=== PATIENT | female | born 1990 | race Caucasian/White ===

== ENCOUNTER 2020-09-27 13:08 | Emergency (ER) | payer MEDICAID ==
[~2020-09-27] VITALS: Ht 172.7 cm; Wt 72.7 kg
[2020-09-27 13:18] VITALS: BP 121/69
[2020-09-27] MEDS ORDERED: acetaminophen 325mg tablet PO ONE (17:25)
[2020-09-27] MEDS ORDERED: ondansetron 4mg rapidly disintigrating tab PO ONE (17:25)
[2020-09-27] MEDS ORDERED: diazepam 5mg tablet PO ONE (17:25)
[2020-09-27 17:55] LABS: URINE HCG NEGATIVE (NEG)
== END 2020-09-27 19:33 | disposition home or self-care (01) ==
LOC: ER 13:08
DX: S01.01XA Laceration without foreign body of scalp, initial encounter (principal); S40.021A Contusion of right upper arm, initial encounter; S30.0XXA Contusion of lower back and pelvis, initial encounter; F41.9 Anxiety disorder, unspecified; Z88.1 Allergy status to other antibiotic agents; Z87.448 Personal history of other diseases of urinary system; W19.XXXA Unspecified fall, initial encounter; Y93.89 Activity, other specified; Y92.89 Other specified places as the place of occurrence of the external cause; Y99.8 Other external cause status
CPT/HCPCS: 70450; 72170; 72220; 73110; 73130; 81025; 99285

== ENCOUNTER 2020-11-21 08:38 | Emergency (ER) | payer MEDICAID ==
[~2020-11-21] VITALS: Ht 170.2 cm; Wt 70.5 kg
[2020-11-21 08:53] VITALS: BP 119/75
== END 2020-11-21 11:44 | disposition home or self-care (01) ==
LOC: ER 08:40
DX: M79.671 Pain in right foot (principal); Z87.440 Personal history of urinary (tract) infections; Z72.89 Other problems related to lifestyle; Z88.1 Allergy status to other antibiotic agents
CPT/HCPCS: 93971; 99284

== ENCOUNTER 2020-11-27 12:50 | Emergency (ER) | payer MEDICAID ==
[~2020-11-27] VITALS: Ht 170.2 cm; Wt 70.8 kg
[2020-11-27] MEDS ORDERED: normal saline 1000ML IV soln IV ONE (16:15)
[2020-11-27 17:12] LABS: BASOPHILS # (AUTO) 0.1 X10'3 (0-0.2); BASOPHILS % (AUTO) 0.4 % (0-1); EOSINOPHILS # (AUTO) 0.2 X10'3 (0-0.9); EOSINOPHILS % (AUTO) 1.5 % (0-6); HEMATOCRIT 33.7 % (35.0-45.0); HEMOGLOBIN 11.3 g/dl (12.0-16.0); LYMPHOCYTES % (AUTO) 16.5 % (21-51); MEAN CORPUSCULAR HEMOGLOBIN 30.2 PG (27.0-31.0); MEAN CORPUSCULAR HGB CONC 33.5 g/dL (33.0-36.5); MEAN PLATELET VOLUME 8.8 FL (7.4-10.4); MONOCYTES # (AUTO) 0.6 X10'3 (0-0.9); MONOCYTES % (AUTO) 4.6 % (2-12); NEUTROPHILS # (AUTO) 9.1 X10'3 (1.8-7.7); PLATELET COUNT 296 X10'3 (140-440); RED BLOOD COUNT 3.75 X10'6 (4.20-5.60); RED CELL DISTRIBUTION WIDTH 12.9 % (11.5-14.5); WHITE BLOOD COUNT 11.9 X10'3 (4.5-11.0)
[2020-11-27 17:32] LABS: CLARITY,URINE SLIGHTLY CLOUDY (Clear); COLOR,URINE STRAW (Yellow); GLUCOSE, URINE NEGATIVE (Neg); KETONES,URINE NEGATIVE (Neg); LEUKOCYTE ESTERASE ,URINE NEGATIVE (Neg); NITRITES, URINE NEGATIVE (Neg); OCCULT BLOOD,URINE NEGATIVE (Neg); PROTEIN,URINE NEGATIVE (Neg); UROBILINOGEN,URINE 0.2 E.U/dL (0.2-1.0)
[2020-11-27 17:35] LABS: UA COLLECTION TYPE CLN CATCH MIDSTREAM
[2020-11-27 17:35] LABS: ALANINE AMINOTRANSFERASE 52 U/L (12-78); ALKALINE PHOSPHATASE 79 IU/L (46-116); ANION GAP 9 (8-16); ASPARTATE AMINO TRANSFERASE 24 U/L (10-37); BILIRUBIN,TOTAL 0.2 MG/DL (0.1-1.0); BLOOD UREA NITROGEN 12 MG/DL (7-18); CALCIUM 9.2 MG/DL (8.5-10.1); CHLORIDE 102 MMOL/L (99-107); CREATININE 0.63 MG/DL (0.40-0.90); GLUCOSE 96 MG/DL (70-104); MAGNESIUM 2.2 MG/DL (1.5-2.4); POTASSIUM 4.1 MMOL/L (3.5-5.1); SODIUM 138 MMOL/L (135-145); TOTAL CARBON DIOXIDE 27.5 MMOL/L (24-32); TOTAL PROTEIN 7.9 G/DL (6.4-8.2); eGFR > 90 ML/MIN
[2020-11-27 17:36] LABS: URINE HCG NEGATIVE (NEG)
[2020-11-27 17:37] LABS: MUCUS STRANDS NONE SEEN /LPF (Neg); SQUAMOUS EPITHELIAL CELL,UR FEW /LPF (FEW)
[2020-11-27 17:38] LABS: BACTERIA,URINE FEW /HPF (Neg); RBC,URINE 0-2 /HPF (0-2); WBC,URINE NONE SEEN /HPF (0-4)
[2020-11-27 17:39] LABS: HCG SERUM QL NEGATIVE
[2020-11-27] MEDS ORDERED: iohexol 300mg/ml 100ml inj. ONE (18:05)
[2020-11-27 18:35] VITALS: BP 112/60
== END 2020-11-27 18:41 | disposition home or self-care (01) ==
LOC: ER 12:51
DX: L76.82 Other postprocedural complications of skin and subcutaneous tissue (principal); Z87.440 Personal history of urinary (tract) infections; Z88.1 Allergy status to other antibiotic agents
CPT/HCPCS: 36415; 80053; 81001; 81025; 83605; 83735; 84145; 84703; 85025; 87040; 99283; Q9967

== ENCOUNTER 2023-08-07 13:31 | Emergency (ER) | payer MEDICAID ==
[~2023-08-07] VITALS: Ht 170.2 cm; Wt 75.2 kg
[2023-08-07 14:16] VITALS: BP 124/74; PULSE 76; RESP 18; TEMP 98.8; O2SAT 98
[2023-08-07] MEDS ORDERED: CLIN300C54 PO (14:35)
[2023-08-07] MEDS ORDERED: bacitracin 15gm ointment TP SCH (21:00)
== END 2023-08-07 14:58 | disposition home or self-care (01) ==
LOC: ER 13:33
DX: S81.832A Puncture wound without foreign body, left lower leg, initial encounter (principal); F41.9 Anxiety disorder, unspecified; Z72.89 Other problems related to lifestyle; W54.0XXA Bitten by dog, initial encounter; Y93.89 Activity, other specified; Y92.89 Other specified places as the place of occurrence of the external cause; Y99.8 Other external cause status; Z98.890 Other specified postprocedural states
CPT/HCPCS: 99283

== ENCOUNTER → 2024-03-29 | Outpatient (CLI) | payer MEDICAID | END | disposition home or self-care (01) | LOC: RAD 11:32 | PROVIDERS: ATTEND Nurse Practitioner | DX: N93.0 Postcoital and contact bleeding (principal); N88.8 Other specified noninflammatory disorders of cervix uteri | CPT/HCPCS: 76856; 93976 ==

== ENCOUNTER 2025-01-19 09:45 | Outpatient (CLI) | payer MEDICAID | END 2025-01-19 23:59 | disposition home or self-care (01) | LOC: RAD 09:45 | PROVIDERS: ATTEND Physician Assistant | DX: R56.9 Unspecified convulsions (principal) | CPT/HCPCS: 95816 ==